=== PATIENT | male | born 1980 | race Caucasian/White ===

== ENCOUNTER 2024-06-01 21:20 | Emergency (ER) | payer OTHER ==
[~2024-06-01] VITALS: Ht 172.7 cm; Wt 104.3 kg
[2024-06-01 21:47] VITALS: BP 147/90; PULSE 108; RESP 20; TEMP 102.4; O2SAT 96
[2024-06-01] MEDS: ACETAMINOPHEN EXTRA STRENGTH 500 MG TAB PO ONE (22:17)
[2024-06-01 23:27] LABS: BASOPHILS % (AUTO) 0.3 % (0.0-2.0); HEMATOCRIT 41.5 % (36-52); HEMOGLOBIN 14.2 g/dL (12.0-18.0); LYMPHOCYTES # (AUTO) 0.3 K/uL (2.0-11.5); MEAN CORPUSCULAR HEMOGLOBIN 30 pg (27-31); MEAN CORPUSCULAR HGB CONC 34 g/dL (33-37); MONOCYTES # (AUTO) 0.9 K/uL (0.8-1.0); MONOCYTES % (AUTO) 7.5 % (1.7-9.3); NEUTROPHILS # (AUTO) 10.2 K/uL (1.8-7.7); NEUTROPHILS % (AUTO) 89.2 % (42.2-75.2); PLATELET COUNT (AUTO) 203 K/uL (140-450); RED BLOOD CELL COUNT(AUTO) 4.72 MIL/uL (4.20-6.10); RED CELL DISTRIBUTION WIDTH 13.1 % (11.6-13.7); WHITE BLOOD COUNT (AUTO) 11.4 K/uL (4.8-10.8)
[2024-06-01 23:37] LABS: ANION GAP 11.7 (8-16); CALCIUM 8.2 mg/dL (8.5-10.1); CARBON DIOXIDE 28.1 mmol/L (21-32); CREATININE 1.1 mg/dL (0.6-1.3)
[2024-06-01] MEDS: NACL 0.9% 1,000 ML IV ONE (23:39)
[2024-06-01] MEDS: ONDANSETRON 4 MG/2 ML VIAL IVP ONE (23:41)
[2024-06-01] MEDS: metroNIDAZOLE 500 MG/NS PREMIX 100 ML IV ONE (23:41)
[2024-06-01 23:44] LABS: POTASSIUM 2.8 mmol/L (3.5-5.1)
[2024-06-02] MEDS: POTASSIUM CHLORIDE 10 MEQ TABER PO ONE (00:17)
[2024-06-02] MEDS ORDERED: METR-435 PO (01:15)
[2024-06-02 01:30] VITALS: BP 137/77; PULSE 77; RESP 17; TEMP 98.4; O2SAT 96
== END 2024-06-02 01:30 | disposition home or self-care (01) ==
LOC: MED 21:20
DX: A09 Infectious gastroenteritis and colitis, unspecified (principal); I10 Essential (primary) hypertension
CPT/HCPCS: 36415; 80048; 85025; 87040; 96365; 96375; 99284; J2405; J3490; J7030